=== PATIENT | female | born 1960 | race African-American/Black ===

== ENCOUNTER 2021-03-26 18:00 | Observation (INO) | payer BC ==
[~2021-03-26] VITALS: Ht 152.4 cm; Wt 65.3 kg
[~2021-03-26 18:00] MED LIST: AMLODIPINE BESY10 MG PO; ATORVASTATIN CA40 MG PO; CARDIA; GLIPIZIDE-METF1 EAC2 PO; LANTUS SUBQ; LISINOPRIL10 MG PO; METFORMIN; METFORMIN HCL500 MG PO; METHOCARBAMOL500 M2 PO; NAPROSYN500 MG PO; NORCO 5-325 TA1 EACH PO; NORFLEX100 MG PO; TRADJENTA5 MG PO; TRIAMTERENE-HC1 EAC1 PO
[2021-03-26 18:02] VITALS: BP 135/61
[2021-03-26 18:30] LABS: ABSOLUTE BASOPHILS 0.1 thou/uL (0.0-0.2); ABSOLUTE EOSINOPHILS 0.1 thou/uL (0.0-0.7); ABSOLUTE LYMPHOCYTES 3.6 thou/uL (0.8-5.3); ABSOLUTE MONOCYTES 0.5 thou/uL (0.0-1.2); ABSOLUTE NEUTROPHILS 3.3 thou/uL (1.6-8.1); BASOPHILS 0.7 %; EOSINOPHILS 1.2 %; HEMATOCRIT 40.4 % (37.0-47.0); HEMOGLOBIN 13.8 gm/dL (12.0-15.0); LYMPHOCYTES 47.7 %; MCHC 34.1 g/dL (28.0-37.0); MCV 85.2 fL (80.0-100.0); MONOCYTES 6.1 %; MPV 7.8 fl. (7.2-11.1); NUCLEATED RBCS 0 /100WBC; PLATELET COUNT* 343 thou/uL (150-400); POLYS 44.3 %; RBC 4.74 mil/uL (4.20-5.00); RDW-CV 13.6 % (10.5-14.5); WBC 7.5 thou/uL (4.0-11.0)
[2021-03-26 18:48] LABS: CALCIUM 9.8 mg/dL (8.5-10.1); CREATININE 1.1 mg/dL (0.6-1.3)
[2021-03-26 18:53] LABS: ALBUMIN 3.9 g/dL (3.4-5.0); POTASSIUM 2.4 mmol/L (3.5-5.1); TOTAL BILIRUBIN 0.3 mg/dL (<0.1-1.0); TOTAL PROTEIN 8.3 g/dL (6.4-8.2)
[2021-03-26 23:35] VITALS: BP 147/72
[2021-03-27] VITALS: BP 139/85
[2021-03-27 04:00] VITALS: BP 148/81
--- NOTE | 2021-03-27 04:43 | NUR ---
PT ARRIVED TO THE UNIT AT ABOUT 2330. A&O, VSS ON RA. DENIED PAIN, N/V. PT UP INDEPENDENTLY IN THE ROOM. ELECTROLYTE REPLACEMENT IN PROGRESS. CALL LIGHT WITHIN REACH. WILL CONTINUE TO MONITOR.
[2021-03-27 08:00] VITALS: BP 138/82
[2021-03-27 11:40] VITALS: BP 138/82
[2021-03-27 13:30] LABS: URINE BILIRUBIN NEGATIVE (Negative); URINE BLOOD NEGATIVE (Negative); URINE CLARITY CLEAR; URINE COLOR YELLOW; URINE GLUCOSE-RANDOM 1+ (Negative); URINE KETONES NEGATIVE (Negative); URINE LEUKOCYTES-REFLEX NEGATIVE (Negative); URINE NITRITE-REFLEX NEGATIVE (Negative); URINE PROTEIN NEGATIVE (Negative); URINE SPECIFIC GRAVITY 1.025 (1.005-1.030); URINE UROBILINOGEN 0.2 E.U./dl (0.2-1.0)
--- NOTE | 2021-03-27 14:52 | NUR ---
PT DISCHARGED HOME WITH FAMILY. VSS AFEBRILE. PT DENIES PAIN ON DISMISSAL. SALINE LOCK REMOVED HUB INTACT. PT DISMISSED HOME.
--- NOTE | 2021-03-28 11:44 | EKG ---
[place] [address] ELECTROCARDIOGRAM REPORT Name: DENISA ANTON Room: [address] M..#: [id number] Admission: 03/26/21 Attend Phys: Omar Leger Discharge: 03/27/21 Date of : 56 Date of Service: 03/26/211809 Report #: [id number] THIS REPORT FOR: //name// [facility] ED Test Date: 2021-03-26 Test Time: 18:10:02 Pat Name: KELLEESarah ANTON Department: Room: [facility] Gender: F Product/Industry Consultant: ABHINAV : 1960 Requested By: David Laurent Order Number: [id number] MD: Al Rosado Measurements Intervals [place] Rate: 73 P: 43 FL: 132 QRS: 0 QRSD: 101 T: 7 QT: 428 QTc: 472 Interpretive Statements Sinus rhythm Left ventricular hypertrophy, by voltage Nonspecific T wave flattening No previous ECG available for comparison Electronically Signed On 03-28-2021 11:44:03 CDT by Al Rosado [email or web address] <ELECTRONICALLY SIGNED> By: Al Rosado MD, FACC 03/28/21 1144 1810 1810 Al Rosado MD, [facility] /EPI
== END 2021-03-27 14:30 | disposition home or self-care (01) ==
LOC: M.ERS 18:00 → M.2W 22:43 → M.TBA-ER 22:43 → M.2W 23:29
PROVIDERS: Emergency Medicine; Personal Emergency Response Attendant; ADMIT Internal Medicine; ATTEND Internal Medicine
DX: R55 Syncope and collapse (principal); Z20.822 Contact with and (suspected) exposure to COVID-19; T67.5XXA Heat exhaustion, unspecified, initial encounter; E11.65 Type 2 diabetes mellitus with hyperglycemia; E87.6 Hypokalemia; M10.9 Gout, unspecified; I10 Essential (primary) hypertension; Z79.899 Other long term (current) drug therapy; X58.XXXA Exposure to other specified factors, initial encounter; Y93.89 Activity, other specified; Y92.89 Other specified places as the place of occurrence of the external cause